=== PATIENT | male | born 1965 | race Caucasian/White ===

== ENCOUNTER 2022-04-02 06:01 | Inpatient (IN) ==
--- NOTE | 2022-03-06 12:57 | PAT Medication Instructions ---
Medication Instructions Date of Service March 06, 2022 Home Medications atorvastatin 40 mg tablet 40 mg PO QAM ezetimibe 10 mg tablet (Zetia) 10 mg PO QAM furosemide 20 mg tablet (Lasix) 20 mg PO QAM insulin aspart (niacinamide)(U-100) 100 unit/mL(3 mL) subcutaneous pen (Fiasp FlexTouch U-100 Insulin) 1 sliding scale dose subcut USEASDIRECTD insulin degludec 100 unit/mL (3 mL) subcutaneous pen (Tresiba FlexTouch U-100 insulin) 100 unit subcut QAM lisinopril 20 mg tablet 20 mg PO QAM metformin 500 mg tablet,extended release 24 hr 1,000 mg PO QAM semaglutide 1 mg/dose (2 mg/1.5 mL) subcutaneous pen injector 1 mg subcut WK Continue as directed semaglutide 1 mg/dose (2 mg/1.5 mL) subcutaneous pen injector 1 mg subcut WK DO NOT take the morning of surgery furosemide 20 mg tablet (Lasix) 20 mg PO QAM insulin aspart (niacinamide)(U-100) 100 unit/mL(3 mL) subcutaneous pen (Fiasp FlexTouch U-100 Insulin) 1 sliding scale dose subcut USEASDIRECTD lisinopril 20 mg tablet 20 mg PO QAM metformin 500 mg tablet,extended release 24 hr 1,000 mg PO QAM Take morning of surgery With a small sip of water, OTHERWISE NOTHING TO EAT OR DRINK AFTER MIDNIGHT: atorvastatin 40 mg tablet 40 mg PO QAM ezetimibe 10 mg tablet (Zetia) 10 mg PO QAM Take evening before surgery insulin aspart (niacinamide)(U-100) 100 unit/mL(3 mL) subcutaneous pen (Fiasp FlexTouch U-100 Insulin) 1 sliding scale dose subcut USEASDIRECTD Insulin Dependent Diabetic Patients * Test your blood sugar the morning of surgery * If Blood Sugar is GREATER THAN 150, take HALF of your regular dose of: insulin degludec 100 unit/mL (3 mL) subcutaneous pen (Tresiba FlexTouch U-100 insulin) take 50 units * If Blood Sugar is LESS THAN 150, DO NOT TAKE ANY: insulin degludec 100 unit/mL (3 mL) subcutaneous pen (Tresiba FlexTouch U-100 insulin) Other Notes If you have any questions please call us at [phone] or [phone] or [phone] or [phone]
--- NOTE | 2022-03-12 11:27 | Anesthesiology Consultation ---
Date of Service March 12, 2022 Assessment & Plan (1) Encounter for pre-operative examination: Chart Review Chart Review: Acceptable Risk for Surgery (pending preop Covid testing results and surgeon ordered PCP clearance ) and Patient NOT seen in Pre Admission Testing - Awaiting surgeon ordered PCP clearance (03/13/22 or 03/14/22) Hx of HHT (hereditary hemorrhagic telangiectasia)- pt states before starting IV fluids- he has to have "bubble filter placed" on IV. Follows with [facility] - Dr Croft (Vascular and Interventional Radiology) (phone number [phone]). Pt just needs filter to keep any air bubbles from going into system (needs to be a wet to wet connection per [facility]). Discussed with Dr. Lobo- this can be placed DOS. Pt will also bring filter in case needed DOS. - Check BSG AM DOS Per PAT appt on 03/12/22, patient denies any recent travel or large group activities. No known Covid positive exposures or Covid related symptoms. No known Covid infection in the past 90 days. Pt is NOT vaccinated for Covid. Preop Covid testing scheduled 03/29/22 = will await results. Educated on importance of self quarantining, social distancing and wearing mask in public for the patient one week prior to surgery and after Covid testing done Teaching & Discussion Pre-Anesthesia Teaching/Discussion Notes: Instructed NPO after midnight before surgery,except medications with 15 cc of water. Medication instructions provided according to the PAT guidelines. History Surgery Operation Date: 04/02/22 07:45 Proposed Procedures p L3-L4 Decompression and Fusion, L4-S1 Hardware Removal - Lex Walker DO Height/Weight Height: 5 ft 9 in Weight: 149 kg Allergies Allergy/AdvReac Type Severity Reaction Status Date / Time NSAIDS (Non-Steroidal Allergy Severe NO NSAIDS Verified 03/05/22 14:46 Anti-Inflamma DUE TO HHT Medications Home Medications Medication Instructions Recorded Confirmed Last Taken atorvastatin 40 mg tablet 40 mg PO QAM 03/05/22 03/05/22 Unknown ezetimibe 10 mg tablet (Zetia) 10 mg PO QAM 03/05/22 03/05/22 Unknown furosemide 20 mg tablet (Lasix) 20 mg PO QAM 03/05/22 03/05/22 Unknown insulin aspart 1 sliding scale dose subcut 03/05/22 03/05/22 Unknown (niacinamide)(U-100) 100 unit/mL(3 USEASDIRECTD mL) subcutaneous pen (Fiasp FlexTouch U-100 Insulin) insulin degludec 100 unit/mL (3 100 unit subcut QAM 03/05/22 03/05/22 Unknown mL) subcutaneous pen (Tresiba FlexTouch U-100 insulin) lisinopril 20 mg tablet 20 mg PO QAM 03/05/22 03/05/22 Unknown metformin 500 mg tablet,extended 1,000 mg PO QAM 03/05/22 03/05/22 Unknown release 24 hr semaglutide 1 mg/dose (2 mg/1.5 1 mg subcut WK 03/05/22 03/05/22 Unknown mL) subcutaneous pen injector Past Medical History Medical History (Updated 03/13/22 @ 11:03 by Dora Hanna PA-C) Brain aneurysm "Micro aneurysm" found incidentally in [place] in 2009. No follow up needed. No problems. 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 Chills, cough, and mild symptoms. Hyperlipidemia Hypertension Uses self-applied continuous glucose monitoring device Melvi 14 day monitor Exercise / Class Metabolic Activity II 4-5 Yardwork/Stairs/Walk up hill (one flight of stairs - no chest pain or SOB ) Past Family History Family History Other No family history of adverse response to anesthesia Past Surgical History Surgical History H/O ventral hernia repair History of cholecystectomy History of esophagogastroduodenoscopy (EGD) age 15 History of lung surgery In [place] (2009) for HHT coil placement History of tonsillectomy S/P lumbar fusion L4-L5 Past Anesthesia History No Hx of Anesthesia Complications and No Family Hx of Anesthesia Complications History of PONV No Hx of Motion Sickness and History of PONV (one episosde of nausea post op - ate shortly after surgery ) Social History Smoking Status: Never smoker Do You Dip or Chew Tobacco: No Hx Alcohol Use: No Hx Substance Use: No substance use type: does not use Review of Systems Hx of snoring - no witnessed apnea - no hx of sleep study Patient denies chest pain, shortness of breath, dyspnea on exertion, reflux, cough, wheezing, palpitations. No hx of seizures, stroke, [place]. No hx of blood clots or blood transfusions Physical Exam Vital Signs VITALS BP 149/83 P 79 TEMP 98.6 SP02 96% RESP 16 Constitutional no acute distress ENMT Mouth: no TMJ clicking Thyromental Distance: > or= 3.5 Finger Breadths (3.5) Mallampati Class: III Neck + limited neck extension (mild ) Respiratory normal respiratory effort; no respiratory distress Auscultation: lungs clear to auscultation bilaterally; no wheezes Cardiovascular Rate/Rhythm: regular rate and regular rhythm Heart Sounds: no murmur Vessels: no carotid bruit Musculoskeletal Spine: + pain with cervical ROM Extremities: extremities normal to inspection Psychiatric Orientation: alert Lab Results Anesthesia Preop Results Results Anesthesia Widget: WBC 9.00 K/ul (4.8-10.8) 03/12/22 Hgb 14.3 g/dl (14.0-18.0) 03/12/22 Hct 43.2 % (40.1-51.0) 03/12/22 Plt 270 K/uL (130-400) 03/12/22 Na 138 mmol/L (136-145) 03/12/22 K 4.1 mmol/L (3.5-5.1) 03/12/22 Cl 107 mmol/L (98-107) 03/12/22 CO2 28 mmol/L (21-32) 03/12/22 BUN 12 mg/dl (6-23) 03/12/22 Creat 0.93 mg/dl (0.6-1.4) 03/12/22 Glucose Level 68 mg/dl (70-99(Fasting)) L 03/12/22 PT 10.1 Seconds (9.0-12.0) 03/12/22 PTT 24.8 Seconds (21.0-31.0) 03/12/22 INR 0.9 (0.9-1.1) 03/12/22 HA1c 7.5 % (4.5-5.6) H 03/12/22 Urine Color Yellow 03/12/22 Urine Appearance Clear (Clear) 03/12/22 Urine pH 5.0 (4.5-7.5) 03/12/22 Urine Specific [place] 1.013 (1.000-1.030) 03/12/22 Urine Protein Negative (Negative) 03/12/22 Urine Glucose (UA) Negative (Negative) 03/12/22 Urine Ketones Negative (Negative) 03/12/22 Urine Blood Negative (Negative) 03/12/22 Urine Nitrite Negative (Negative) 03/12/22 Urine Bilirubin Negative (Negative) 03/12/22 Urine Urobilinogen Negative (Negative) 03/12/22 Urine Leukocyte Esterase Negative (Negative) 03/12/22 Blood Type A Positive 03/12/22 Antibody Screen NEGATIVE 03/12/22 Testing Electrocardiogram Date: 03/12/22 Findings: + NSR @ (80bpm ) Rightward axis When compared to December 05, 2014- no significant change was found per cardio. Chest X-Ray Date: 03/12/22 Findings: + NAD FINDINGS: Frontal and lateral radiographs of the chest demonstrate the cardiomediastinal silhouette to be within normal limits. The lungs are clear of alveolar opacities. There is no evidence for effusion bilaterally. There is no evidence for vascular congestion. There is no acute osseous pathology. Surgical suture material most likely representing embolization coils is again seen posterolaterally on the right.
[~2022-04-02 06:01] MED LIST: ACETAMINOPHEN 500 MG TAB PO SCH; CeleBREX 200 MG CAP PO SCH; GABAPENTIN 600 MG DOSE PO SCH; LR 15ML/HR IV SCH
[2022-04-02] MEDS ORDERED: ceFAZolin 330 MG/ML 1 GM VIAL ONE (07:07)
[2022-04-02] MEDS ORDERED: BUPIVACAINE/EPINEPHRINE 0.25% 1:200,000 30 ML VIAL ONE (07:07)
--- NOTE | 2022-04-02 07:31 | History & Physical Bridge Note ---
Date of Service April 02, 2022 History & Physical Bridge Note I have examined the patient, reviewed the History & Physical and in the interval since the performance of the History & Physical I have noted the following changes of clinical significance: no changes noted
--- NOTE | 2022-04-02 07:32 | History & Physical Report ---
Date of Service April 02, 2022 Assessment & Plan (1) Lumbar stenosis with neurogenic claudication: Plan: L3-L4 decompression and fusion, L4-S1 hardware removal History of Present Illness Chief Complaint: Back and leg pain Primary Care Provider: Nav Evans This is a 57-year-old male who presents with chronic persistent back and leg pain. Failing extensive course of nonoperative care is here for surgical invention. Allergies Allergy/AdvReac Type Severity Reaction Status Date / Time NSAIDS (Non-Steroidal Allergy Severe NO NSAIDS Verified 04/02/22 06:19 Anti-Inflamma DUE TO HHT Home Medications Medication Instructions Recorded Confirmed Type atorvastatin 40 mg tablet 40 mg PO QAM 03/05/22 04/02/22 History ezetimibe 10 mg tablet (Zetia) 10 mg PO QAM 03/05/22 04/02/22 History furosemide 20 mg tablet (Lasix) 20 mg PO QAM 03/05/22 04/02/22 History insulin aspart 1 sliding scale dose subcut 03/05/22 04/02/22 History (niacinamide)(U-100) 100 unit/mL(3 USEASDIRECTD mL) subcutaneous pen (Fiasp FlexTouch U-100 Insulin) insulin degludec 100 unit/mL (3 100 unit subcut QAM 03/05/22 04/02/22 History mL) subcutaneous pen (Tresiba FlexTouch U-100 insulin) lisinopril 20 mg tablet 20 mg PO QAM 03/05/22 04/02/22 History metformin 500 mg tablet,extended 1,000 mg PO QAM 03/05/22 04/02/22 History release 24 hr semaglutide 1 mg/dose (2 mg/1.5 1 mg subcut WK 03/05/22 04/02/22 History mL) subcutaneous pen injector Past Med/Surg History Medical History Brain aneurysm "Micro aneurysm" found incidentally in [place] in 2009. No follow up needed. No problems. 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 Chills, cough, and mild symptoms. Hyperlipidemia Hypertension Uses self-applied continuous glucose monitoring device Melvi 14 day monitor Surgical History H/O ventral hernia repair History of cholecystectomy History of esophagogastroduodenoscopy (EGD) age 15 History of lung surgery In [place] (2009) for HHT coil placement History of tonsillectomy S/P lumbar fusion L4-L5 Family History Other No family history of adverse response to anesthesia Social History Smoking Status: Never smoker Second Hand Exposure: No; Do You Dip or Chew Tobacco: No; Tobacco Cessation Education Requested by Patient: No Hx Alcohol Use: No Hx Substance Use: No Preferred Language: Mohawk Communication Ability: Effective Manager Benefit Required: No Beliefs That Will Affect Care: None Current Living Situation: Spouse and Family Other Information That Helps Us Care for You: No Feels Safe at Home: Yes Safety Concerns: Feels Safe At This Time Assistive Devices: Glasses Physical Exam Physical Exam: Patient is alert and oriented Heart regular in rhythm Lungs clear Results & Data Results & Data ([facility]) Vital Signs (Past 12 Hours) Vital Signs Temp Pulse Resp BP Pulse Ox O2 Del Method 04/02/22 06:23 37.2 C 91 H 20 136/80 94 Room Air 04/02/22 06:23 Room Air
[2022-04-02] MEDS ORDERED: ATROPINE SULFATE 0.1 MG/ML 10ML SYR IV PRN (07:38)
[2022-04-02] MEDS ORDERED: HYDROmorphone INJ 2 MG/ML SYR/VIAL IV PRN (07:38)
[2022-04-02] MEDS ORDERED: fentaNYL citrate 100 MCG/2 ML VIAL IV PRN (07:38)
[2022-04-02] MEDS ORDERED: ePHEDrine sulfate 50 MG/ML AMP IV PRN (07:38)
[2022-04-02] MEDS ORDERED: ONDANSETRON INJ 2 MG/ML 2 ML VIAL IV PRN ×2 (07:38→11:58)
[2022-04-02] MEDS ORDERED: FLOSEAL HEMOSTATIC MATRIX 10ML TOP ONE (09:55)
--- NOTE | 2022-04-02 10:11 | Operative Report ---
Post Operative Report Pre & Post Diagnosis Operation Date: 04/02/22 07:45 Pre-Op Diagnosis: Lumbar Spinal Stenosis with Neurogenic Claudication Post-Op Diagnosis: Lumbar Spinal Stenosis with Neurogenic Claudication I identified the patient and participated in the time-out.: Yes Procedure Operation Date: 04/02/22 07:45 Actual Procedures #1 removal of posterior instrumentation L4-L5 L5-S1. #2 exploration of fusion L4-L5 L5-S1. #3 lumbar decompression with bilateral medial facetectomies and foraminotomies L2-L3 L3-L4 per #4 posterior spinal fusion L3-L4 per #5 placement posterior instrumentation L3-S1. #6 interbody fusion L3-L4. #7 placement of Spira 15 x 26 mm cage at L3-L4. #8 placement locally harvested morselized autograft in the posterior gutters. #9 placement of I factor combined with V toss in the interbody space and posterior lateral gutters. Surgeon Lex Walker, DO Straddle Carrier Operator Jennifer Puga Estimated Blood Loss 200 Findings See Below Patient is 5 foot 9 weighing over 149 kg with a BMI in excess of 48. Patient's body habitus did contribute to significant technical difficulty required deeper retractors longer instruments in order to perform his procedure. This had at least 50% increased operative time. Specimens None Indications This is a 57-year-old male well-known to me the presents above-mentioned diagnosis after failing course of nonoperative care he is here for the above- mentioned procedure. Description of Procedure Patient was met with identified informed consent obtained. Patient was then taken to the operative suite underwent a patient placed in a prone position on a Gil table on top of the [place] frame. All bony prominences well-padded eyes inspected to ensure no external pressure placed upon them. This point lumbar spine was prepped and draped in normal sterile fashion. Sharp dissection with assistance of Bovie cartilage from down to and exposing the lamina and transverse processes of L3 and instrumentation L4-L5 and S1 levels bilaterally. I then proceeded move the hardware bilaterally explore the fusion mass noting it to be mature and intact. Then performed a complete laminectomy of L3 partial laminectomy L2 including bilateral medial facetectomies and foraminotomies addressing severe spinal stenosis. Pedicle screws then placed at L3-L4 and S1 levels bilaterally with assistance of fluoroscopy and appropriate sized rufino placed. By way of entrance foraminal approach on the right a complete discectomy of L3-L4 was performed endplates curetted to subcortical bleeding bone and a 15 x 26 mm spiral cage filled I factor tapped the position. The rods were then compressed locked in final position bilaterally. The transverse processes of L3-L4 burred to subcortically bone. I factor combined with V toss and locally harvested morselized autograft was placed in the posterior gutters. 15 round TORY inserted. The incision was then closed with 1 Vicryl the fascia 2-0 Vicryl subcutaneously and 4 Monocryl for final skin closure. Steri-Strip sterile dressings placed. Patient waken taken PACU stable condition. Please note spinal cord monitoring was utilized at the procedure no changes noted. Lastly Jennifer Puga was present at the entire surgery involved the patient positioning complex portions of the surgery and fascial closure. I attest to the content of the Intraoperative Record and any orders documented therein. Any exceptions are noted below.
--- NOTE | 2022-04-02 10:27 | Fluoroscopy Report ---
FL lumbar spine 2-3V CLINICAL HISTORY: L3-L4 DECOMPRESSION AND FUSION L4-S1 HW REMOVAL COMPARISON STUDY: None. FLUOROSCOPY TIME: 12 seconds. FINDINGS: 2 fluoroscopic spot images of the lumbar spine demonstrate posterior fusion with pedicle sc rews and rods from L3 through S1. The hardware appears intact. There is L3-L4 disc spacer which appea rs in good position. IMPRESSION: Fluoroscopic assistance provided for lumbar spinal fusion as described above ACT 112: Negative or not required by law. Electronically signed by: Jameel Monterroso M.D. 04/02/2022 10:25 AM
[2022-04-02] MEDS ORDERED: ONDANSETRON 4 MG OD TAB PO PRN (11:58)
[2022-04-02] MEDS ORDERED: ACETAMINOPHEN 500 MG TAB PO PRN (11:58)
[2022-04-02] MEDS ORDERED: hydrOXYzine HCl 25 MG TAB PO PRN (11:58)
[2022-04-02] MEDS ORDERED: ALUMINUM/MAGNESIUM SUSP 30 ML UDC PO PRN (11:58)
[2022-04-02] MEDS ORDERED: SOD PHOSPHATE/SOD BIPHOSPHATE ENEMA 132 ML BTL PR PRN (11:58)
[2022-04-02] MEDS ORDERED: NALOXONE HCL 0.4 MG/1 ML VIAL/CARP IV PRN (11:58)
[2022-04-02] MEDS ORDERED: ACETAMINOPHEN 1,000 MG/100 ML VIAL IV PRN (11:58)
[2022-04-02] MEDS ORDERED: HYDROmorphone INJ 0.5 MG/0.5 ML SYR IV PRN (11:58)
[2022-04-02] MEDS ORDERED: bisacodyL 10 MG SUPP PR PRN (11:58)
[2022-04-02] MEDS ORDERED: LORazepam 0.5 MG in SYRINGE 0.25 ML IV PRN (11:58)
[2022-04-02] MEDS ORDERED: FAMOTIDINE 20 MG TAB PO PRN (11:58)
[2022-04-02] MEDS ORDERED: traMADol HCL 50 MG TABLET PO PRN (11:58)
[2022-04-02] MEDS ORDERED: PROMETHAZINE HCL 12.5 MG in SODIUM CHLORIDE 0.9% 50 ML IV PRN (11:58)
[2022-04-02] MEDS ORDERED: MAGNESIUM HYDROXIDE SUSP 30 ML UDC PO PRN (11:58)
[2022-04-02] MEDS ORDERED: LORazepam 0.5 MG TAB PO PRN (11:58)
[2022-04-02] MEDS ORDERED: METOCLOPRAMIDE HCL INJ 5 MG/ML 2 ML VIAL IV PRN (11:58)
[2022-04-02] MEDS ORDERED: diphenhydrAMINE Capsule 25 MG CAP PO PRN (11:58)
[2022-04-02] MEDS ORDERED: HYDROmorphone INJ 1 MG/ML SYRINGE IV PRN (11:58)
[2022-04-02] MEDS ORDERED: PHARMACY GLYCEMIC MGMT CONSULT PRN (11:58)
[2022-04-02] MEDS: ALLERGY Noted to ORDERED Medication SCH ×3 (12:04→12:06)
[2022-04-02] MEDS: oxyCODONE HCL IR 5 MG TAB (IMMEDIATE RELEASE) PO PRN ×2 (12:20→20:17)
--- NOTE | 2022-04-02 12:20 | Consultation ---
Date of Consultation April 02, 2022 Assessment & Plan (1) Lumbar stenosis with neurogenic claudication: s/p extensive lumbar spine surgery today by Dr Walker as follows: #1 removal of posterior instrumentation L4-L5 L5-S1. #2 exploration of fusion L4-L5 L5-S1. #3 lumbar decompression with bilateral medial facetectomies and foraminotomies L2-L3 L3-L4 per #4 posterior spinal fusion L3-L4 per #5 placement posterior instrumentation L3-S1. #6 interbody fusion L3-L4. #7 placement of Spira 15 x 26 mm cage at L3-L4. #8 placement locally harvested morselized autograft in the posterior gutters. #9 placement of I factor combined with V toss in the interbody space and posterior lateral gutters. Defer pain management, IV fluids, disposition to Dr Walker's team. (2) Diabetes mellitus, type 2: Pharmacy has been consulted for glycemic management. DM diet. Check BSGs ac/hs. Patient counseled he will have high BSGs due to perioperative stress and perioperative steroids. Defer management to Pharmacy. metformin to be held. (3) Hypertension: Check BMP in am. Hold lasix and lisinopril until tomorrow's labs are available. BPs post-op are stable at this time. (4) Hyperlipidemia: Cont statin. Cont zetia. (5) HHT (hereditary hemorrhagic telangiectasia): aka "Ybskv-Wzmkl-Hamcs Syndrome." Follows with [facility]. Noted. Has had visceral involvement in the past including the lungs and brain s/p prophylactic procedures for such. No recent bleeding issues. Monitor carefully for GI bleeding, etc. (6) Morbid obesity with BMI of 45.0-49.9, adult: BMI 48.8 (7) DVT prophylaxis: In light of #1 only SCDs at this time. Platelets and PT/INR noted to be normal on 03/12/22 pre-op labs. Plan Thank you for this consult. We will follow with you. History of Present Illness Requesting Physician: Karson Walker DO Reason for Consultation: post-op medical management Attending Physician: Lex Walker, DO History of Present Illness 57yo male with T2DM on complex insulin regimen, HTN, hyperlipidemia, morbid obesity, and chronic back pain - with prior lumbar spine surgery [address] Karson Walker -presented today for elective decompression/fusion procedure of lumbar spine again by Dr Walker. Patient reports he had a fall in late 2020 and ever since has had low back pain with radicular pain down the left leg. I saw the patient post-op on the surgical floor and he was resting comfortably. Denied headache, chest pain, dyspnea, cough, nausea, emesis, abdominal pain. He has a lazo in place but kept mentioning that he felt the urge to void. Patient states that his most recent HbA1c was 7.5%. He has a RE[facility] continuous glucose monitoring system. He took 70 units of his Tresiba this am. He typically uses about 20-30 unites of short-acting insulin with meals at home. Allergies Allergy/AdvReac Type Severity Reaction Status Date / Time NSAIDS (Non-Steroidal Allergy Severe NO NSAIDS Verified 04/02/22 06:19 Anti-Inflamma DUE TO HHT Home Medications Medication Instructions Recorded Confirmed Type atorvastatin 40 mg tablet 40 mg PO QAM 03/05/22 04/02/22 History ezetimibe 10 mg tablet (Zetia) 10 mg PO QAM 03/05/22 04/02/22 History furosemide 20 mg tablet (Lasix) 20 mg PO QAM 03/05/22 04/02/22 History insulin aspart 1 sliding scale dose subcut 03/05/22 04/02/22 History (niacinamide)(U-100) 100 unit/mL(3 USEASDIRECTD mL) subcutaneous pen (Fiasp FlexTouch U-100 Insulin) insulin degludec 100 unit/mL (3 100 unit subcut QAM 03/05/22 04/02/22 History mL) subcutaneous pen (Tresiba FlexTouch U-100 insulin) lisinopril 20 mg tablet 20 mg PO QAM 03/05/22 04/02/22 History metformin 500 mg tablet,extended 1,000 mg PO QAM 03/05/22 04/02/22 History release 24 hr semaglutide 1 mg/dose (2 mg/1.5 1 mg subcut WK 03/05/22 04/02/22 History mL) subcutaneous pen injector Patient History Medical History (Updated 04/02/22 @ 12:58 by Ricci Morales) Brain aneurysm "Micro aneurysm" found incidentally in [place] in 2009. No follow up needed. No problems. 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 Chills, cough, and mild symptoms. Hyperlipidemia Hypertension Uses self-applied continuous glucose monitoring device Melvi 14 day monitor Surgical History H/O ventral hernia repair History of cholecystectomy History of esophagogastroduodenoscopy (EGD) age 15 History of lung surgery In [place] (2009) for HHT coil placement History of tonsillectomy S/P lumbar fusion L4-L5 Family History (Updated 04/02/22 @ 12:52 by Ricci Morales) Mother Diabetes Father Dementia Uncle Coronary heart disease multiple - maternal side of family Other No family history of adverse response to anesthesia Denies family history of Deep vein thrombosis Pulmonary embolism Social History (Updated 04/02/22 @ 12:53 by Ricci Morales) Smoking Status: Never smoker Second Hand Exposure: No; Do You Dip or Chew Tobacco: No; Tobacco Cessation Education Requested by Patient: No Hx Alcohol Use: No Hx Substance Use: No Preferred Language: Finnish Communication Ability: Effective Residential Program Worker Required: No Beliefs That Will Affect Care: None marital status: Current Living Situation: Spouse and Family Current Living Situation Comment: lives in [place] current occupational status: employed current occupation: loads trucks at [employer] How many Children do You have: 2 Other Information That Helps Us Care for You: No Feels Safe at Home: Yes Safety Concerns: Feels Safe At This Time Assistive Devices: Glasses Review of Systems Review of Systems: gen - no fevers or chills; no recent weight change eyes - no visual change HENT - mild sore throat following intubation for surgery cv - no recent chest pain; no perioperative chest pain pulm - no cough or dyspnea or SÁNCHEZ GI - no N/V/abd pain or blood in stool - voiding sensation (has lazo); pre-op -- no dysuria musculo - chronic low back pain neuro - radicular pain pre-op (left leg) skin - no rash endo - with continuous glucose monitor - BSGs well controlled Physical Exam Physical Exam: gen - morbidly obese, NAD skin - no rash, mildly pale eyes - PERRL mouth - MMM, posterior throat mildly erythematous neck - no JVD, no masses CV - RRR, s1 s2, no murmur lungs - CTA b/l, good airation abd - soft, NT, ND, BS+, no HSM ext - no edema, pulses 2+ b/l neuro - strength 5/5 x 4 exts, upper ext DTRs 2+ b/l psych - a/o x 3 lymph - no cervical lymph nodes present Results & Data ([facility]) Vital Signs (Past 12 Hours) Vital Signs Temp Pulse Pulse Resp BP BP Pulse Ox 04/02/22 12:01 36.7 C 78 18 128/76 94 04/02/22 11:30 78 14 116/68 97 04/02/22 11:20 36.5 C 73 14 113/69 96 04/02/22 11:10 82 14 111/70 94 04/02/22 11:00 80 14 96/64 L 95 04/02/22 10:50 86 14 94/65 L 96 04/02/22 10:40 86 14 110/75 97 04/02/22 10:32 36.1 C L 100 H 13 128/76 97 04/02/22 06:23 37.2 C 91 H 20 136/80 94 04/02/22 06:23 O2 Del Method O2 Flow Rate 04/02/22 12:01 Room Air 04/02/22 11:30 Nasal Cannula 2 04/02/22 11:20 Nasal Cannula 2 04/02/22 11:10 Room Air 04/02/22 11:00 Room Air 04/02/22 10:50 Oxymask 3 04/02/22 10:40 Oxymask 5 04/02/22 10:32 Oxymask 5 04/02/22 06:23 Room Air 04/02/22 06:23 Room Air Laboratory Results pre-op labs 03/12/22 all wnl Hba1C 03/12/22 -- 7.5% EKG - 03/12/22 -- NSR, no ST changes PG Care Time/CCT Total # of Minutes Spent Total Time Spent with Patient: Total time spent is greater than 50% in coordination of care (as documented) at patient's floor/unit and/or counseling patient: Coding Level of Care Code 66278 Inpt Consult Level 2 Diagnoses Lumbar stenosis with neurogenic claudication M48.062 Diabetes mellitus, type 2 E11.9 Hypertension I10 Hyperlipidemia E78.5 HHT (hereditary hemorrhagic telangiectasia) I78.0 Morbid obesity with BMI of 45.0-49.9, adult E66.01; Z68.42 DVT prophylaxis Z29.9
[2022-04-02] MEDS: SODIUM CHLORIDE 0.9% 1000ML 1,000 ML IV SCH ×2 (12:21→18:40)
[2022-04-02] MEDS ORDERED: DEXTROSE 50% 50 ML SYRINGE IV PRN (12:30)
[2022-04-02] MEDS ORDERED: GLUCOSE 10 TAB/TUBE PO PRN (12:30)
[2022-04-02] MEDS ORDERED: GLUCAGON FOR INJ 1 MG VIAL IM PRN (12:30)
[2022-04-02] MEDS ORDERED: GLUCOSE 40% GEL 15 GM TUBE PO PRN (12:30)
[2022-04-02] MEDS ORDERED: CARBOHYDRATES FOR HYPOGLYCEMIA PO PRN (12:30)
[2022-04-02] MEDS: INSULIN ASPART PER UNIT SC SCH ×3 (13:29→20:49)
--- NOTE | 2022-04-02 14:11 | Anesthesiology Progress Note ---
Date of Service April 02, 2022 Anesthesia Post Procedure Vital Signs Vital Signs: Temp Pulse Pulse Resp BP BP Pulse Ox 04/02/22 14:05 36.4 C L 79 17 122/75 94 04/02/22 12:28 36.7 C 81 18 148/86 H 94 04/02/22 12:01 36.7 C 78 18 128/76 94 04/02/22 11:30 78 14 116/68 97 04/02/22 11:20 36.5 C 73 14 113/69 96 04/02/22 11:10 82 14 111/70 94 04/02/22 11:00 80 14 96/64 L 95 04/02/22 10:50 86 14 94/65 L 96 04/02/22 10:40 86 14 110/75 97 04/02/22 10:32 36.1 C L 100 H 13 128/76 97 04/02/22 06:23 37.2 C 91 H 20 136/80 94 04/02/22 06:23 O2 Del Method O2 Flow Rate 04/02/22 14:05 Room Air 04/02/22 12:28 04/02/22 12:01 Room Air 04/02/22 11:30 Nasal Cannula 2 04/02/22 11:20 Nasal Cannula 2 04/02/22 11:10 Room Air 04/02/22 11:00 Room Air 04/02/22 10:50 Oxymask 3 04/02/22 10:40 Oxymask 5 04/02/22 10:32 Oxymask 5 04/02/22 06:23 Room Air 04/02/22 06:23 Room Air Pain Intensity Back: Pain Intensity: 6 Transfer of Care Handoff Completed per policy Notes Mental Status: alert / awake / arousable and participated in evaluation Patient Amnestic to Procedure: Yes Nausea / Vomiting: adequately controlled Pain: adequately controlled Airway Patency, RR, SpO2: stable & adequate BP & HR: stable & adequate Hydration State: stable & adequate Anesthetic Complications: no major complications apparent and Pt Satisfied with anesthetic care
--- NOTE | 2022-04-02 14:37 | Pharmacy Report ---
Pharmacy Glycemic Short Note 2 - Date of Service April 02, 2022 - Glycemic Short BSG Results (Last 24 hours): 04/02/22 04/02/22 04/02/22 06:29 10:34 12:20 POC Glucose 115 H 105 H 129 H OUTPATIENT ANTIDIABETIC REGIMEN: * Tresiba 100 units SC qAM * Fiasp 30 units SC AC + SSI * Metformin 1 g PO daily * Ozempic 1 mg SC weekly on Mondays HbA1c: 7.5% (03/12/22) ASSESSMENT: * MARK is a 57 year old male POD #0 s/p L3-4 decompression/fusion * No intraoperative steroids given * Ordered dexamethasone 6 mg IV daily starting tomorrow morning * Patient with T2DM that is reasonably controlled as an outpatient with large insulin doses * ~>190 units of insulin/day * Received 70 units of Tresiba and 10 units of Fiasp this morning prior to admission * BSGs so far have been 115, 105, and 129 mg/dL * Will hold off on further basal insulin until tomorrow morning PLAN FOR INPATIENT GLYCEMIC CONTROL: * Hold outpatient oral diabetes medications * Basal insulin * Tresiba 70 units SC x 1 this morning prior to admission * Reassess Lantus in AM * Bolus insulin * NovoLog per scale ACHS or Q6hrs while NPO * Goal Range: Low 110 mg/dL - High 140 mg/dL * Correction Factor: 15 mg/dL/unit * Nutritional / Prandial insulin per carb ratio of 1 unit per 5 grams CHO consumed
[2022-04-02] MEDS: ceFAZolin 2000MG 2,000 MG/15 ML SYR IV SCH (16:54)
[2022-04-02] MEDS: DOCUSATE SODIUM/SENNA 50/8.6MG TAB PO SCH (20:13)
[2022-04-03] MEDS: ceFAZolin 2000MG 2,000 MG/15 ML SYR IV SCH (00:20)
[2022-04-03] MEDS: SODIUM CHLORIDE 0.9% 1000ML 1,000 ML IV SCH ×2 (01:44→10:42)
[2022-04-03] MEDS: oxyCODONE HCL IR 5 MG TAB (IMMEDIATE RELEASE) PO PRN ×3 (04:31→19:26)
[2022-04-03] MEDS: POLYETHYLENE (MIRALAX) 17 GM PACK PO SCH ×3 (05:18→17:02)
[2022-04-03 07:23] LABS: Basophils # (auto) 0.06 K/uL (0-0.2); Basophils % (auto) 0.5 %; Eosinophils # (auto) 0.14 K/uL (0-0.50); Eosinophils % (auto) 1.3 %; Hematocrit (blood only) 36.9 % (40.1-51.0); Hemoglobin 11.9 g/dl (14.0-18.0); Immature Granulocytes # (auto) 0.05 K/uL (0.00-0.02); Immature Granulocytes % (auto) 0.4 %; Lymphocytes # (auto) 1.26 K/uL (1.2-3.4); Lymphocytes % (auto) 11.3 %; Mean Corpuscular Hemoglobin 30.4 pg (25.0-34.0); Mean Corpuscular Hgb Conc 32.2 g/dL (32.0-36.0); Mean Corpuscular Volume 94.4 fL (80.0-100.0); Mean Platelet Volume 9.2 fL (9.4-12.4); Monocytes # (auto) 1.21 K/uL (0.24-0.82); Monocytes % (auto) 10.8 %; Neutrophils # (auto) 8.44 K/uL (1.4-6.5); Neutrophils % (auto) 75.7 %; Platelet Count 235 K/uL (130-400); RDW Coefficient of Variation 13.9 % (11.5-14.5); RDW Standard Deviation 48.3 fL (36.4-46.3); Red Blood Count 3.91 M/uL (4.63-6.08); White Blood Count 11.16 K/ul (4.8-10.8)
--- NOTE | 2022-04-03 07:29 | Hospitalist Progress Note ---
Date of Service April 03, 2022 Assessment & Plan (1) Lumbar stenosis with neurogenic claudication: Plan: POD#1 s/p extensive lumbar spine surgery today by Dr Walker as follows: #1 removal of posterior instrumentation L4-L5 L5-S1. #2 exploration of fusion L4-L5 L5-S1. #3 lumbar decompression with bilateral medial facetectomies and foraminotomies L2-L3 L3-L4 per #4 posterior spinal fusion L3-L4 per #5 placement posterior instrumentation L3-S1. #6 interbody fusion L3-L4. #7 placement of Spira 15 x 26 mm cage at L3-L4. #8 placement locally harvested morselized autograft in the posterior gutters. #9 placement of I factor combined with V toss in the interbody space and posterior lateral gutters. Pain management/bowel regimen per primary service --slightly hypoactive BS, no pain. On Miralax Q6 and senna. Monitor for development of ileus Decadron IV per primary service WBC elevation likely 2nd to steroids, did have low grade temp 37.9C suspect atelectasis encouraged incentive spirometer PT/OT consulted DVT proph -- SCDs in light of spinal surgery Continued inpatient stay Hypoxia --hypotension/hypoxia post-operatively felt related to volume overload. Do NOT suspect PE at this time, no pleuritic chest pain, titrated to RA last evening but dropped to 87% on RA which improved with supplemental oxygen, 94% on 2L currently --IVF stopped this morning, BP on softer side but asymptomatic --Denied shortness of breath but lasix/losartan held for this morning as post-op hypotension and monitoring CR in AM --CXR with congestion, lasix 10mg IV x 1 now, monitor response -Possible additional dose this evening as on decadron which could necessitate increased needs but will monitor BP response with diuretics. Hold off losartan for now. Monitor Of note, patient with very likely underlying CHARU (also noted in outpatient PCP notes) but declined overnight pulse ox study as he has in past as he states he wouldn't use a CPAP. Did discuss group home consequences and recommended continued discussion with PCP (2) Diabetes mellitus, type 2: Plan: Pharmacy has been consulted for glycemic management. DM diet. Check BSGs ac/hs. Patient counseled he will have high BSGs due to perioperative stress and perioperative steroids. Defer management to Pharmacy. metformin to be held. will check B12 level in am given neuropathy symptoms, MCV wnl at 94 (3) Hypertension: Plan: Borderline low, lasix/lisinopril placed on hold last evening BP 90s systolic this morning, had been given copious IVF postoperatively @ 150cc/hr BP 108/70 this morning, asymptomatic but volume overload Lasix 10mg IV x 1 this morning, monitor response/additional dose for this evening Cr 1.27 (appears normal baseline pre-op), will hold lisinopril for now but suspect would need, given patient does report LE edema on occasions at home, ?underlying CHF. No echo in system but no murmur on exam requiring eval Monitor response with lasix BMP in AM (4) Hyperlipidemia: Plan: Cont statin, zetia (5) HHT (hereditary hemorrhagic telangiectasia): Plan: aka "Pvzvb-Voyhx-Sfldl Syndrome." Follows with [facility]. Noted. Has had visceral involvement in the past including the lungs and brain s/p prophylactic procedures for such. No recent bleeding issues. Monitor carefully for GI bleeding, etc -- no bleeding reported not on PPI (6) Morbid obesity with BMI of 45.0-49.9, adult: Plan: BMI 48.8 (7) DVT prophylaxis: Plan: In light of #1 only SCDs at this time. Platelets and PT/INR noted to be normal on 03/12/22 pre-op labs. Plan Thank you for this consult, hospitalist will continue to follow. Lasix IV x 1 now, monitor response. On decadron, may need additional dosing Admission and Anticipated Discharge Date Admission Date: April 02, 2022 Supervising Physician Co-Signing Physician Notes Attending Attestation - Chart reviewed in detail, care plan d/w ABIODUN Akins. I agree w/ the vásquez components of her documentation. Ricci Morales MD Subjective Patient evaluated this morning. Doing well. Numbness/tingling improved but still some, hopefully over next 24 hours to continue to improve. Pain controlled with ordered medications. Not passing gas or BM yet, but denies abdominal pain. Was up working with therapy this morning. States had some lightheadedness with standing last evening after anesthesia/moving his head, but none today. Discussed CXR and congestion/fluid overload. Will give his dose of lasix in IV this morning and monitor response. He does note sometimes he has swelling in his feet, he did have some yesterday morning, improved today. Discussed prior PCP notes about possible CHARU, patient does admit to snoring but declined having overnight pulse ox while inpatient to arrange for supplemental O2 at night prior to formal study as he wouldn't use it at home. Did discuss group home consequences and recommended continued discussions with his PCP at discharge. Review of Systems Review of Systems: All systems reviewed & are unremarkable except as noted in HPI & below Physical Exam Physical Exam: General : WD/WN obese male sitting up in recliner chair, NAD HEENT; head normocephalic, atraumatic, eyes anicteric, mmm, +JVD Resp: no cough/wheezing, lungs diminished in the bases with associated crackles, 94% on 2L, no rales CV: RRR, no m/r/g, trace pedal edema GI: +hypoactive but present BS in all quadrants, +distended, nontender, no guarding : lazo draining clear yellow urine MSK/Neuro: strength 5/5 throughout, pulses palpable, dressing to lumbar spine c/d/i, tender to palpation, TORY drain bloody drainage ~75cc Psych: AOx3, cooperative Results & Data Results & Data ([facility]) Vital Signs (Past 12 Hours) Vital Signs Temp Pulse Resp BP Pulse Ox O2 Del Method O2 Flow Rate 04/03/22 07:23 37.1 C 99 H 20 96/63 L 94 Nasal Cannula 2 04/03/22 06:31 127 H 20 94 Nasal Cannula 2 04/03/22 06:15 37.4 C 126 H 20 87 L Room Air 04/03/22 04:35 37.9 C H 109 H 93 Room Air 04/03/22 03:13 37.6 C H 101 H 16 108/69 91 Room Air 04/02/22 22:50 36.8 C 99 H 16 113/72 92 Room Air Laboratory Results 04/03/22 04/03/22 04/03/22 Range/Units 08:05 07:09 07:09 WBC 11.16 H (4.8-10.8) K/ul RBC 3.91 L (4.63-6.08) M/uL Hgb 11.9 L (14.0-18.0) g/dl Hct 36.9 L (40.1-51.0) % MCV 94.4 (80.0-100.0) fL MCH 30.4 (25.0-34.0) pg MCHC 32.2 (32.0-36.0) g/dL RDW Std Deviation 48.3 H (36.4-46.3) fL RDW Coeff of Robert 13.9 (11.5-14.5) % Plt Count 235 (130-400) K/uL MPV 9.2 L (9.4-12.4) fL Immature Gran % (Auto) 0.4 % Neut % (Auto) 75.7 % Lymph % (Auto) 11.3 % Rusk % (Auto) 10.8 % Eos % (Auto) 1.3 % Baso % (Auto) 0.5 % Neut # (Auto) 8.44 H (1.4-6.5) K/uL Lymph # (Auto) 1.26 (1.2-3.4) K/uL Rusk # (Auto) 1.21 H (0.24-0.82) K/uL Eos # (Auto) 0.14 (0-0.50) K/uL Baso # (Auto) 0.06 (0-0.2) K/uL Immature Gran # (Auto) 0.05 H (0.00-0.02) K/uL Sodium 133 L (136-145) mmol/L Potassium 4.2 (3.5-5.1) mmol/L Chloride 106 (98-107) mmol/L Carbon Dioxide 21 (21-32) mmol/L Anion Gap 6 (3-11) BUN 17 (6-23) mg/dl Creatinine 1.27 (0.6-1.4) mg/dl Est Cr Clr Drug Dosing 94.0 ml/min Est GFR ( Amer) 72.7 ml/min Est GFR (Non-Af Amer) 62.7 ml/min BUN/Creatinine Ratio 13.4 (10-20) Glucose 183 H (70-99(Fasting)) mg/dl POC Glucose 177 H (70-99) mg/dl Calcium 7.4 L (8.5-10.1) mg/dl 04/02/22 04/02/22 04/02/22 Range/Units 20:33 17:35 12:20 WBC (4.8-10.8) K/ul RBC (4.63-6.08) M/uL Hgb (14.0-18.0) g/dl Hct (40.1-51.0) % MCV (80.0-100.0) fL MCH (25.0-34.0) pg MCHC (32.0-36.0) g/dL RDW Std Deviation (36.4-46.3) fL RDW Coeff of Robert (11.5-14.5) % Plt Count (130-400) K/uL MPV (9.4-12.4) fL Immature Gran % (Auto) % Neut % (Auto) % Lymph % (Auto) % Rusk % (Auto) % Eos % (Auto) % Baso % (Auto) % Neut # (Auto) (1.4-6.5) K/uL Lymph # (Auto) (1.2-3.4) K/uL Rusk # (Auto) (0.24-0.82) K/uL Eos # (Auto) (0-0.50) K/uL Baso # (Auto) (0-0.2) K/uL Immature Gran # (Auto) (0.00-0.02) K/uL Sodium (136-145) mmol/L Potassium (3.5-5.1) mmol/L Chloride (98-107) mmol/L Carbon Dioxide (21-32) mmol/L Anion Gap (3-11) BUN (6-23) mg/dl Creatinine (0.6-1.4) mg/dl Est Cr Clr Drug Dosing ml/min Est GFR ( Amer) ml/min Est GFR (Non-Af Amer) ml/min BUN/Creatinine Ratio (10-20) Glucose (70-99(Fasting)) mg/dl POC Glucose 143 H 130 H 129 H (70-99) mg/dl Calcium (8.5-10.1) mg/dl Diagnostic Findings Chest X-Ray 04/03/22 07:28 XR chest 2V PA/lateral HISTORY: hypoxia COMPARISON: Chest 03/12/2022. FINDINGS: There are low lung volumes. The cardiac silhouette is mildly enlarged. There is mild pulmonary vascular congestion without overt edema. No pleural effusions. No focal lung consolidations to suggest pneumonia. Embolization coils again noted within the right lung base. IMPRESSION: Mild cardiomegaly with mild central pulmonary vascular congestion without overt edema. ACT 112: Negative or not required by law. Electronically signed by: Jameel Monterroso M.D. 04/03/2022 10:24 AM PG Care Time/CCT Total # of Minutes Spent Total Time Spent with Patient: Total time spent is greater than 50% in coordination of care (as documented) at patient's floor/unit and/or counseling patient: Coding Level of Care Code 47242 Subseq Hosp Care Lvl 3 Diagnoses Lumbar stenosis with neurogenic claudication M48.062 Diabetes mellitus, type 2 E11.9 Hypertension I10 Hyperlipidemia E78.5 HHT (hereditary hemorrhagic telangiectasia) I78.0 Morbid obesity with BMI of 45.0-49.9, adult E66.01; Z68.42 DVT prophylaxis Z29.9
[2022-04-03 07:50] LABS: BUN Creatinine Ratio 13.4 (10-20); Calcium 7.4 mg/dl (8.5-10.1); Est GFR (African American) 72.7 ml/min; Est GFR (Non-African American) 62.7 ml/min; Potassium 4.2 mmol/L (3.5-5.1)
[2022-04-03] MEDS: EZETIMIBE 10 MG TABLET PO SCH (08:59)
[2022-04-03] MEDS: ATORVASTATIN 40 MG TAB PO SCH (08:59)
[2022-04-03] MEDS: dexAMETHasone 6 MG in SYRINGE 0 ML IV SCH (08:59)
[2022-04-03] MEDS ORDERED: lisinopril 20 MG TAB PO SCH (09:00)
[2022-04-03] MEDS ORDERED: FUROSEMIDE 20 MG TAB PO SCH (09:00)
[2022-04-03] MEDS: INSULIN ASPART PER UNIT SC SCH ×4 (09:04→21:29)
[2022-04-03] MEDS: LANTUS PER UNIT CHARGE SQ SCH (09:05)
--- NOTE | 2022-04-03 10:03 | Orthopedic Progress Note ---
Date of Service April 03, 2022 Assessment & Plan (1) Lumbar stenosis with neurogenic claudication: Plan: This time we will continue physical therapy monitor his TORY operatively discharge of next day or so. Admission and Anticipated Discharge Date Admission Date: April 02, 2022 Subjective Patient's back pain is controlled leg symptoms markedly improved Physical Exam Physical Exam: On exam patient is in a chair at the bedside. Is good strength testing. Appears comfortable. Results & Data ([facility]) Vital Signs (Past 12 Hours) Vital Signs Temp Pulse Resp BP Pulse Ox O2 Del Method O2 Flow Rate 04/03/22 07:23 37.1 C 99 H 20 96/63 L 94 Nasal Cannula 2 04/03/22 06:31 127 H 20 94 Nasal Cannula 2 04/03/22 06:15 37.4 C 126 H 20 87 L Room Air 04/03/22 04:35 37.9 C H 109 H 93 Room Air 04/03/22 03:13 37.6 C H 101 H 16 108/69 91 Room Air 04/02/22 22:50 36.8 C 99 H 16 113/72 92 Room Air
--- NOTE | 2022-04-03 10:26 | XRay Report ---
XR chest 2V PA/lateral HISTORY: hypoxia COMPARISON: Chest 03/12/2022. FINDINGS: There are low lung volumes. The cardiac silhouette is mildly enlarged. There is mild pulmon dylan vascular congestion without overt edema. No pleural effusions. No focal lung consolidations to le ggest pneumonia. Embolization coils again noted within the right lung base. IMPRESSION: Mild cardiomegaly with mild central pulmonary vascular congestion without overt edema. ACT 112: Negative or not required by law. Electronically signed by: Jameel Monterroso M.D. 04/03/2022 10:24 AM
[2022-04-03] MEDS ORDERED: FUROSEMIDE INJ 20 MG/2 ML VIAL IV ONE ×2 (10:40→15:00)
--- NOTE | 2022-04-03 13:28 | Pharmacy Report ---
Pharmacy Glycemic Short Note 2 - Date of Service April 03, 2022 - Glycemic Short BSG Results (Last 24 hours): 04/02/22 04/02/22 04/03/22 17:35 20:33 07:09 Glucose 183 H POC Glucose 130 H 143 H 04/03/22 04/03/22 08:05 11:55 Glucose POC Glucose 177 H 234 H OUTPATIENT ANTIDIABETIC REGIMEN: * Tresiba 100 units SC qAM * Fiasp 30 units SC AC + SSI * Metformin 1 g PO daily * Ozempic 1 mg SC weekly on Mondays HbA1c: 7.5% (03/12/22) ASSESSMENT: 04/03/22 * BSGs well-controlled yesterday postoperatively, ranging 129-143 mg/dL * Fasting BSG elevated at 177 mg/dL - likely related to reduced Tresiba dose at home prior to surgery * Will give full home Lantus with IV dexamethasone this morning and tighten Novolog based on outpatient insulin doses * Lantus scale this evening if needed 04/02/22 * JT is a 57 year old male POD #0 s/p L3-4 decompression/fusion * No intraoperative steroids given * Ordered dexamethasone 6 mg IV daily starting tomorrow morning * Patient with T2DM that is reasonably controlled as an outpatient with large insulin doses * ~>190 units of insulin/day * Received 70 units of Tresiba and 10 units of Fiasp this morning prior to admission * BSGs so far have been 115, 105, and 129 mg/dL * Will hold off on further basal insulin until tomorrow morning PLAN FOR INPATIENT GLYCEMIC CONTROL: * Hold outpatient oral diabetes medications * Basal insulin * Lantus 100 units SC qAM with IV dexamethasone * Lantus 0-20 units SC HS (see EHR for details) * Bolus insulin * NovoLog per scale ACHS or Q6hrs while NPO * Goal Range: Low 110 mg/dL - High 140 mg/dL * Correction Factor: 10 mg/dL/unit * Nutritional / Prandial insulin per carb ratio of 1 unit per 3 grams CHO consumed
[2022-04-03] MEDS: MAGNESIUM SULFATE / D5W 1 GM/100 ML BAG IV SCH ×2 (15:00→17:00)
[2022-04-03] MEDS: DOCUSATE SODIUM/SENNA 50/8.6MG TAB PO SCH (19:26)
[2022-04-03] MEDS ORDERED: LANTUS PER UNIT CHARGE SQ SCH (21:00)
[2022-04-04] MEDS: POLYETHYLENE (MIRALAX) 17 GM PACK PO SCH ×4 (00:50→18:49)
[2022-04-04 08:20] LABS: Hematocrit (blood only) 33.7 % (40.1-51.0); Hemoglobin 11.4 g/dl (14.0-18.0); Mean Corpuscular Hemoglobin 30.7 pg (25.0-34.0); Mean Corpuscular Hgb Conc 33.8 g/dL (32.0-36.0); Mean Corpuscular Volume 90.8 fL (80.0-100.0); Mean Platelet Volume 9.7 fL (9.4-12.4); Platelet Count 211 K/uL (130-400); RDW Coefficient of Variation 13.1 % (11.5-14.5); RDW Standard Deviation 43.5 fL (36.4-46.3); Red Blood Count 3.71 M/uL (4.63-6.08); White Blood Count 11.91 K/ul (4.8-10.8)
[2022-04-04] MEDS: ATORVASTATIN 40 MG TAB PO SCH (08:27)
[2022-04-04] MEDS: LANTUS PER UNIT CHARGE SQ SCH (08:27)
[2022-04-04] MEDS: dexAMETHasone 6 MG in SYRINGE 0 ML IV SCH (08:27)
--- NOTE | 2022-04-04 08:46 | Hospitalist Progress Note ---
Date of Service April 04, 2022 Assessment & Plan (1) Lumbar stenosis with neurogenic claudication: Plan: POD#2 s/p extensive lumbar spine surgery today by Dr Walker as follows: #1 removal of posterior instrumentation L4-L5 L5-S1. #2 exploration of fusion L4-L5 L5-S1. #3 lumbar decompression with bilateral medial facetectomies and foraminotomies L2-L3 L3-L4 per #4 posterior spinal fusion L3-L4 per #5 placement posterior instrumentation L3-S1. #6 interbody fusion L3-L4. #7 placement of Spira 15 x 26 mm cage at L3-L4. #8 placement locally harvested morselized autograft in the posterior gutters. #9 placement of I factor combined with V toss in the interbody space and posterior lateral gutters. Pain management/bowel regimen per primary service --slightly hypoactive BS, no pain. On Miralax Q6 and senna -- to continue bowel regimen at home Decadron IV per primary service WBC elevation likely 2nd to steroids, did have low grade temp 37.9C post op 04/02, suspected atelectasis and encouraged incentive spirometer, no further temps Also given 10mg IV lasix x 2 yesterday, 2gm IV magnesium for mag 1.6 for congestion likely from excessive IVF given for post-op hypotension Breathing improved, titrated to room air this morning, Cr stable and resumed AM lasix/lisinopril BP 145/79 PT/OT consulted -- plans to discharge home tonight per primary service DVT proph -SCDS Continued inpatient stay Of note, patient with very likely underlying CHARU (also noted in outpatient PCP notes) but declined overnight pulse ox study as he has in past as he states he wouldn't use a CPAP. Did discuss chcf consequences and recommended continued discussion with PCP (2) Diabetes mellitus, type 2: Plan: Pharmacy has been consulted for glycemic management. DM diet. Pharmacy consulted while inpatient metformin to be held -- resume at d/c B12 borderline low, replacement ordered and continued at dc/ Elevations in BSG 2nd to steroids, IV magnesium replacement, improved with titer BSG control (3) Hypertension: Plan: Borderline low, lasix/lisinopril placed on hold copious IVF provided, developed pulmonary congestion, IV lasix 10mg x2 04/03, resumed lasix and lisinopril for this morning given Cr stable 0.88 and BP 145/79 and titrated to room air with some pedal edema (4) Hyperlipidemia: Plan: Cont statin, zetia (5) HHT (hereditary hemorrhagic telangiectasia): Plan: aka "Jbqnj-Lasyx-Ctuug Syndrome." Follows with [facility]. Noted. Has had visceral involvement in the past including the lungs and brain s/p prophylactic procedures for such. No recent bleeding issues. Monitor carefully for GI bleeding, etc -- no bleeding reported not on PPI (6) Morbid obesity with BMI of 45.0-49.9, adult: Plan: BMI 48.8 (7) DVT prophylaxis: Plan: In light of #1 only SCDs at this time. Platelets and PT/INR noted to be normal on 03/12/22 pre-op labs. Plan Thank you for this consult, hospitalist will sign off as patient for discharge this evening per primary service Please call with any questions/concerns. Admission and Anticipated Discharge Date Admission Date: April 02, 2022 Supervising Physician Co-Signing Physician Notes Attending Attestation - Chart reviewed in detail, care plan d/w PA Sugey Akins. I agree w/ the vásquez components of her documentation. Ricci Morales MD Subjective Evaluated this morning, doing well. Numbness/tingling improved and felt his knees were not as weak with ambulation today. Discussed B12 borderline, on metformin, and continued replacement at d/c. Belly grumbling but no BM yet. Pain controlled with ordered medications, he is hoping for home pack as not to be available to pick him up until 8pm. RN to contact Dr Walker regarding home pack., Breathing stable, titrated to RA. Resumed his lasix for this morning, he does endorse feet being a little puffy. Awaiting lazo to be removed and monitor for voiding following. Otherwise, no fever/chills, chest pain, shortness of breath, abdominal pain, nausea or vomiting. Review of Systems Review of Systems: All systems reviewed & are unremarkable except as noted in HPI & below Physical Exam Physical Exam: General : WD/WN obese male sitting up in recliner chair, NAD, on ROOM AIR HEENT; head normocephalic, atraumatic, eyes anicteric, mmm Resp: no cough, good air entry, CTAB, slightly diminished in the bases, no wheezing/crackles, on ROOM AIR CV: RRR, no m/r/g, trace pedal edema bilaterally, calves nontender GI: +hypoactive but present BS in all quadrants, soft, nontender : lazo draining clear yellow urine MSK/Neuro: strength 5/5 throughout, pulses palpable, dressing to lumbar spine c/d/i, tender to palpation, TORY drain bloody drainage ~35cc Psych: AOx3, cooperative Results & Data Results & Data ([facility]) Vital Signs (Past 12 Hours) Vital Signs Temp Pulse Resp BP Pulse Ox O2 Del Method O2 Flow Rate 04/04/22 08:06 Nasal Cannula 1 04/04/22 06:24 36.8 C 87 16 145/79 H 95 Nasal Cannula 1 04/03/22 22:15 36.9 C 87 16 120/73 93 Nasal Cannula 1 Laboratory Results 04/04/22 04/04/22 04/04/22 Range/Units 08:09 07:41 07:41 WBC (4.8-10.8) K/ul RBC (4.63-6.08) M/uL Hgb (14.0-18.0) g/dl Hct (40.1-51.0) % MCV (80.0-100.0) fL MCH (25.0-34.0) pg MCHC (32.0-36.0) g/dL RDW Std Deviation (36.4-46.3) fL RDW Coeff of Robert (11.5-14.5) % Plt Count (130-400) K/uL MPV (9.4-12.4) fL Sodium (136-145) mmol/L Potassium (3.5-5.1) mmol/L Chloride (98-107) mmol/L Carbon Dioxide (21-32) mmol/L Anion Gap (3-11) BUN (6-23) mg/dl Creatinine (0.6-1.4) mg/dl Est Cr Clr Drug Dosing ml/min Est GFR ( Amer) ml/min Est GFR (Non-Af Amer) ml/min BUN/Creatinine Ratio (10-20) Glucose (70-99(Fasting)) mg/dl POC Glucose 157 H (70-99) mg/dl Calcium (8.5-10.1) mg/dl Magnesium (1.7-2.4) mg/dl Vitamin B12 299 (180-914) pg/ml TSH 0.591 (0.300-4.500) uIu/ml 04/04/22 04/04/22 04/03/22 Range/Units 07:41 07:41 20:39 WBC 11.91 H (4.8-10.8) K/ul RBC 3.71 L (4.63-6.08) M/uL Hgb 11.4 L (14.0-18.0) g/dl Hct 33.7 L (40.1-51.0) % MCV 90.8 (80.0-100.0) fL MCH 30.7 (25.0-34.0) pg MCHC 33.8 (32.0-36.0) g/dL RDW Std Deviation 43.5 (36.4-46.3) fL RDW Coeff of Robert 13.1 (11.5-14.5) % Plt Count 211 (130-400) K/uL MPV 9.7 (9.4-12.4) fL Sodium 134 L (136-145) mmol/L Potassium 3.8 (3.5-5.1) mmol/L Chloride 103 (98-107) mmol/L Carbon Dioxide 26 (21-32) mmol/L Anion Gap 5 (3-11) BUN 18 (6-23) mg/dl Creatinine 0.88 D (0.6-1.4) mg/dl Est Cr Clr Drug Dosing 135.7 ml/min Est GFR ( Amer) 111.3 ml/min Est GFR (Non-Af Amer) 96.0 ml/min BUN/Creatinine Ratio 20.5 H (10-20) Glucose 165 H (70-99(Fasting)) mg/dl POC Glucose 304 H* (70-99) mg/dl Calcium 7.6 L (8.5-10.1) mg/dl Magnesium 2.1 (1.7-2.4) mg/dl Vitamin B12 (180-914) pg/ml TSH (0.300-4.500) uIu/ml 04/03/22 04/03/22 04/03/22 Range/Units 17:11 11:55 07:09 WBC (4.8-10.8) K/ul RBC (4.63-6.08) M/uL Hgb (14.0-18.0) g/dl Hct (40.1-51.0) % MCV (80.0-100.0) fL MCH (25.0-34.0) pg MCHC (32.0-36.0) g/dL RDW Std Deviation (36.4-46.3) fL RDW Coeff of Robert (11.5-14.5) % Plt Count (130-400) K/uL MPV (9.4-12.4) fL Sodium (136-145) mmol/L Potassium (3.5-5.1) mmol/L Chloride (98-107) mmol/L Carbon Dioxide (21-32) mmol/L Anion Gap (3-11) BUN (6-23) mg/dl Creatinine (0.6-1.4) mg/dl Est Cr Clr Drug Dosing ml/min Est GFR ( Amer) ml/min Est GFR (Non-Af Amer) ml/min BUN/Creatinine Ratio (10-20) Glucose (70-99(Fasting)) mg/dl POC Glucose 265 H 234 H (70-99) mg/dl Calcium (8.5-10.1) mg/dl Magnesium 1.6 L (1.7-2.4) mg/dl Vitamin B12 (180-914) pg/ml TSH (0.300-4.500) uIu/ml PG Care Time/CCT Total # of Minutes Spent Total Time Spent with Patient: Total time spent is greater than 50% in coordination of care (as documented) at patient's floor/unit and/or counseling patient: Coding Level of Care Code 00665 Subseq Hosp Care Lvl 3 Diagnoses Lumbar stenosis with neurogenic claudication M48.062 Diabetes mellitus, type 2 E11.9 Hypertension I10 Hyperlipidemia E78.5 HHT (hereditary hemorrhagic telangiectasia) I78.0 Morbid obesity with BMI of 45.0-49.9, adult E66.01; Z68.42 DVT prophylaxis Z29.9
--- NOTE | 2022-04-04 08:50 | Discharge Summary ---
Date of Service April 04, 2022 Admission HPI Per Admitting Provider This is a 57-year-old male who presents with chronic persistent back and leg pain. Failing extensive course of nonoperative care is here for surgical invention. Principal Diagnosis Lumbar spinal stenosis with neurogenic claudication Discharge Data Allergies Allergy/AdvReac Type Severity Reaction Status Date / Time NSAIDS (Non-Steroidal Allergy Severe NO NSAIDS Verified 04/02/22 06:19 Anti-Inflamma DUE TO HHT Consultations 04/02/22 12:07 Consult Hospitalist Routine Procedures Performed Operation Date: 04/02/22 07:45 Actual Procedures p L3-L4 Decompression and Fusion, Spinal Cord Monitoring(Not Applicable) - Lex Walker DO s L4-S1 Hardware Removal, (Not Applicable) - Lex Walker DO Ordered Studies 04/02/22 07:45 FL lumbar spine 2-3V Routine Hospital Course (1) Lumbar stenosis with neurogenic claudication: Patient with lumbar decompression fusion tolerated procedure well was taken to orthopedic for postoperative. Postop day 1 he was up and ambulating progressed nicely postop day #2. TORY drain decreasing appropriate. Excellent strength testing. Separately discharged home. Discharge orders instructions found in chart for further view. Total Time Total Time Spent Total Time Spent (In Minutes): 20 minutes Discharge Plan Discharge Items Patient Disposition: Home - Self-Care Reason For Visit: Spinal Stenosis, Lumbar Region with Neurogenic Cla Discharge Diagnosis: Lumbar spinal stenosis with neurogenic claudication Activity: As commented below Non-emergency contact: Primary Care Provider Call non-emergency contact if: you have any medication questions Follow-up/Referrals: Nav Evans [Primary Care Provider] - Diet: Regular Addtl Attending Provider Instructions: ACTIVITY RECOMMENDATIONS: SELF CARE INSTRUCTIONS AFTER THORACIC/LUMBAR FUSIONS 1. You may walk to your tolerance. It is good exercise for your legs and back. Expect some back and intermittent leg aches and pains. 2. You may perform "counter-top" level activities (make a sandwich, kevin with a project, etc.). 3. No bending or lifting of more than 10 pounds or back twisting of any nature (roll like a log when turning in bed). 4. You may ride in a car for 20-30 minutes at a time. No driving until after your first visit with your doctor. 5. Frequent changes of position and restricting sitting to 30 minutes at a time will help limit the amount of back spasms and stiffness you may experience. 6. You may discontinue the use of ambulatory aids (cane, crutches, etc.) once your strength and confidence allow. 7. You may physical instructor the shower and let water strike your incision when you arrive home at least once daily. Do not take a tub bath, sit in a hot tub or go into a swimming pool until after your first recheck in the office. SPECIAL CARE INSTRUCTIONS: VERY IMPORTANT TO READ AND REVIEW A. Your surgical incision has been closed with a cosmetic suture under the skin that will dissolve in about 6 weeks. In 14 days, you can use a pair of clean scissors and cut the suture that is left outside of the skin at the ends of your incision. 1. The small skin tapes can be removed 7 days after surgery if they have not fallen off by that point. 2. You may keep the wound open to air as much as possible to promote healing after post-op day number 5 unless told otherwise by your doctor. 3. If you think the wound looks like it is becoming infected (redness or worsening drainage) and/or you are experiencing fever, chill or worsening back pain and muscle spasms, contact the office so that we may evaluate you as soon as possible. B. Complications are uncommon, but please contact us if you have any signs or symptoms of: 1. wound infection (fever higher than 102.5 degrees F, redness, separation of wound, drainage, or increasing pain from the incision) 2. blood clots in legs (pain, swelling, redness and warmth in legs) 3. urinary tract infection (fever higher than 102.5 degrees F, burning upon urination or increased frequency of urination) 4. nerve problems (inability to walk on your toes or heels, numbness, loss of bowel or bladder control) 5. any other symptoms that concern you C. Please call the office at if you have any concerns or questions about your operation or recovery. D. No smoking! Smoking drastically decreases the chance of a solid fusion. E. Do not take any anti-inflammatory medications (Indocin, Advil, Motrin, Aspirin, Naprosyn, etc.) as these may inhibit the chance of a solid fusion. Tylenol is okay to take for pain. MANAGING PAIN AFTER SPINAL SURGERY 1. Narcotic medication is intended for short-term use and will be provided for surgical pain. Surgical pain usually lasts for a period of 4-6 weeks. Narcotic medication includes Percocet, Vicodin, Darvocet, Tylenol #3 or Lortab. 2. Longer-term pain is more appropriately treated with non-narcotic medication such as Tylenol ES. 3. Muscle spasm is not appropriately treated with narcotics. Muscle relaxers such as Soma, Flexeril or Skelaxin can be used along with Tylenol ES. 4. Remember that we all live with some "aches and pains". This is not unusual or uncommon after an injury or as we get older. a. Back pain is expected and may include muscle spasms for 4 to 6 weeks after surgery. The pain should gradually improve. If the pain worsens for no apparent reason, please contact the office. b. Intermittent leg pain may also be experienced and should not be concerned about unless it worsens for no apparent reason. If so, please contact the office. 5. We will provide appropriate medication within the normal guidelines of their prescribed use. We will also be very cautious and aware of potential abuse and extended duration of patients' medication needs. a. Pain medications are for your comfort and to assist with sleep and rest so that the tissue can heal. They are not provided in order to return to normal activity and should not be used through the day. To do so or worsening pain at night can result from ongoing tissue damage and development of tolerance to the prescribed medicine. 6. Please allow 2-3 days to process refills. Prescriptions will not be mailed but must be picked up at the office. FOLLOW UP VISIT: Keep your scheduled follow-up appointment. Any questions, please call the office at . Pending Studies at Discharge: No Stand-Alone Forms: My Lydia, Smoking Cessation Medications and DC Order Prescriptions: New tramadol 50 mg tablet 50 mg PO Q6H PRN (Reason: pain, moderate) Qty: 30 0RF oxycodone 5 mg tablet 5 mg PO Q6H PRN (Reason: pain, severe) Qty: 30 0RF Continued atorvastatin 40 mg Tablet 40 mg PO QAM lisinopril 20 mg Tablet 20 mg PO QAM furosemide [Lasix] 20 mg Tablet 20 mg PO QAM metformin 500 mg Tablet Extended Release 24 Hr 1,000 mg PO QAM ezetimibe [Zetia] 10 mg Tablet 10 mg PO QAM Tresiba FlexTouch U-100 100 unit/mL (3 mL) Insulin Pen 100 unit SUBCUT QAM Fiasp FlexTouch U-100 Insulin 100 unit/mL (3 mL) Insulin Pen 1 sliding scale dose SUBCUT USEASDIRECTD Rx Instructions: 30 units plus sliding scale semaglutide 1 mg/dose (2 mg/1.5 mL) Pen Injector 1 mg SUBCUT WK Discharge Orders: Discharge Order (Routine); Ordered 04/04/22 Ordered By: Lex Walker Admission Data Admit Date/Time: 04/02/22 10:14 Attending Provider: Lex Walker Admit Provider: Lex Walker Primary Care Provider: Nav Evans Other Providers: Yared Baeza ; Sugey Akins ; Ricci Morales ; Jae Lopez ; Arie Moore ; Dario Smith ; Shawn Boone ; Amy Lujan ; Josey Zhang ; Jaylan Mendez ; Paige Garrett ; Garret Crisostomo ; Jamey Montano ; Charley Cox ; Shira Zhang ; Jenny Oliver ; Carlos Geller ; Praful Garner ; Sugey Platt ; Mariana Wells ; Nader Wayne ; Ricci Dowling ; Maryann Gauthier ; Dilcia Jolly ; Aleks Lino ; Dannielle Ruiz ; Logan Lee ; Arie Salcido ; Derick Finn ; Dalton Henry ; Robin Slade ; Marcelo Infante
[2022-04-04 08:52] LABS: BUN Creatinine Ratio 20.5 (10-20); Calcium 7.6 mg/dl (8.5-10.1); Creatinine Clr Calc Pharmacy 135.7 ml/min; Est GFR (African American) 111.3 ml/min; Magnesium 2.1 mg/dl (1.7-2.4); Potassium 3.8 mmol/L (3.5-5.1)
[2022-04-04] MEDS ORDERED: NovoLIN-N (NPH) PER UNIT CHARGE SQ ONE (09:00)
[2022-04-04] MEDS: EZETIMIBE 10 MG TABLET PO SCH (09:38)
[2022-04-04] MEDS: INSULIN ASPART PER UNIT SC SCH ×3 (09:39→17:54)
[2022-04-04] MEDS ORDERED: PERCOCET 5/325MG HOMEPACK PO ONE (16:00)
[2022-04-05] MEDS ORDERED: CYANOCOBALAMIN (B-12) 500 MCG TABLET PO SCH (09:00)
== END 2022-04-04 20:00 | disposition home or self-care (01) | DRG 454 ==
LOC: ASU 06:01 → 3N 10:14